=== PATIENT | female | born 1945 | race Caucasian/White ===

== ENCOUNTER 2019-09-26 18:01 | Emergency (ER) | payer OTHER ==
[~2019-09-26] VITALS: Ht 160 cm; Wt 59.0 kg
[2019-09-26] MEDS ORDERED: IV NORMAL SALINE 1000 ML BAG IV ONE (19:00)
--- NOTE | 2019-09-26 19:00 | NUR ---
Seen and examined by Dr Grant with new order. Report given to Ev TATE
[2019-09-26 19:35] LABS: BASOPHILS # (AUTO) 0.1 K/uL (0.0-8.0); BASOPHILS % (AUTO) 0.7 % (0.0-2.0); EOSINOPHILS # (AUTO) 0.2 K/uL (0.0-0.7); EOSINOPHILS % (AUTO) 2.9 % (0.0-7.0); HEMATOCRIT 41.7 % (31.2-41.9); LYMPHOCYTES # (AUTO) 1.4 K/uL (20.0-40.0); LYMPHOCYTES % (AUTO) 17.1 % (20.5-51.5); MEAN CORPUSCULAR HEMOGLOBIN 31.2 uug (24.7-32.8); MEAN CORPUSCULAR HGB CONC 34 g/dL (32.3-35.6); MONOCYTES # (AUTO) 0.4 K/uL (2.0-10.0); MONOCYTES % (AUTO) 4.8 % (0.0-11.0); NEUTROPHILS # (AUTO) 5.9 K/uL (1.8-8.9); NEUTROPHILS % (AUTO) 74.5 % (38.5-71.5); PLATELET COUNT (AUTO) 289 K/uL (179-408); RED BLOOD CELL COUNT(AUTO) 4.49 MIL/uL (3.63-4.92)
[2019-09-26 19:42] LABS: CREATININE 0.8 mg/dL (0.6-1.3); POTASSIUM 3.7 mmol/L (3.5-5.1)
[2019-09-26 19:48] LABS: BILIRUBIN,DIRECT 0.1 mg/dL (0.0-0.2); BILIRUBIN,TOTAL 0.4 mg/dL (0.2-1.0); TOTAL PROTEIN, SERUM 7.5 g/dL (6.4-8.2)
[2019-09-26 19:53] LABS: *BILIRUBIN,URIN NEGATIVE (NEGATIVE); *BLOOD, URINE 1+ (NEGATIVE); *CLARITY,URINE CLOUDY (CLEAR); *COLOR,URINE YELLOW (YELLOW); *KETONES,URINE NEGATIVE (NEGATIVE); *UROBILINOGEN,URINE 0.2 E.U./dl (NORMAL); LEUKOCYTE ESTERASE ,URINE 1+ (NEGATIVE); NITRITE, URINE NEGATIVE (NEGATIVE); PH,URINE 8.5 (5.0-8.0); UGLUCOSE NEGATIVE (NEGATIVE)
[2019-09-26 20:00] LABS: BACTERIA,URINE R /HPF (NONE SEEN); RBC,URINE 0-3 /HPF (0-3); WBC,URINE 0-3 /HPF (0-3)
[2019-09-26 20:01] LABS: SQUAMOUS EPITHELIAL CELL,UR FEW /HPF (NONE SEEN); URINE AMORPHOUS PHOSPHATES MANY /HPF
--- NOTE | 2019-09-26 20:21 | NUR ---
DR RENEE on phone with Isaac LEACH for pt.
--- NOTE | 2019-09-26 21:19 | NUR ---
Pt states she "does not want to go to [place]" for transfer. Pt signed AMA form. MD discussed risks and benefits. Patient verbalizes understanding of instructions. Patient discharged to home in stable conditon. Written and verbal after care instructions given. Taxi was called for pt transportation to home. Pt ambulated out of ER with steady gait. All belongings with pt.
[2019-09-26 21:26] VITALS: BP 145/63
== END 2019-09-26 21:27 | disposition home or self-care (01) ==
LOC: ER 18:01
DX: R55 Syncope and collapse (principal); F41.9 Anxiety disorder, unspecified
CPT/HCPCS: 36415; 70030-TC; 70450; 71045; 72125; 85025; 85730; 87086; 93005; A4663; J7030

== ENCOUNTER 2022-03-22 16:37 | Emergency (ER) | payer MEDICAID, MEDICARE, OTHER ==
[~2022-03-22] VITALS: Ht 157.5 cm; Wt 56.7 kg
[2022-03-22] MEDS ORDERED: ALBU8.5H8 INH (17:10)
[2022-03-22] MEDS ORDERED: DICLOFENAC SOD (17:10)
[2022-03-22] MEDS ORDERED: LEVO50TA8 PO (17:10)
[2022-03-22] MEDS ORDERED: NITR50CA PO (17:11)
[2022-03-22] MEDS ORDERED: OLANZAPINE 5 MG TABLET PO ONE ×2 (17:15→18:00)
[2022-03-22] MEDS ORDERED: IV NORMAL SALINE 1000 ML BAG IV ONE (17:15)
[2022-03-22] MEDS ORDERED: CEFTRIAXONE 1 G in IV DEXTROSE 5% 50 ML IV ONE (17:15)
[2022-03-22] MEDS ORDERED: CEFTRIAXONE /D5W 50ML IVPB **ER PYXIS IV ONE (17:22)
[2022-03-22] MEDS ORDERED: OLANZAPINE 5 MG TABLET ONE ×2 (17:23→18:01)
--- NOTE | 2022-03-22 17:30 | NUR ---
Patient per wheelchair, accompanied by daughter with complaints of abdominal pain 03/02 started yesterday. Denies nausea/vomiting, SOB, chest pain. Vitals stable.
--- NOTE | 2022-03-22 17:31 | NUR ---
MD at bedside, medical screening exam in progress.
[2022-03-22 17:50] LABS: MEAN CORPUSCULAR HEMOGLOBIN 32.4 uug (24.7-32.8); MEAN CORPUSCULAR VOLUME 93.6 fL (75.5-95.3); PLATELET COUNT (AUTO) 337 K/uL (179-408)
[2022-03-22 17:58] LABS: CREATININE 0.6 mg/dL (0.6-1.3); POTASSIUM 3.7 mmol/L (3.5-5.1)
[2022-03-22 17:59] LABS: *BILIRUBIN,URIN NEGATIVE (NEGATIVE); *BLOOD, URINE 2+ (NEGATIVE); *CLARITY,URINE CLEAR (CLEAR); *COLOR,URINE YELLOW (YELLOW); *KETONES,URINE NEGATIVE (NEGATIVE); *UROBILINOGEN,URINE 0.2 E.U./dl (NORMAL); LEUKOCYTE ESTERASE ,URINE NEGATIVE (NEGATIVE); NITRITE, URINE NEGATIVE (NEGATIVE); PH,URINE 6.5 (5.0-8.0); UGLUCOSE TRACE (NEGATIVE)
--- NOTE | 2022-03-22 17:59 | NUR ---
UA and covid specimen sent to lab.
--- NOTE | 2022-03-22 18:18 | NUR ---
Request 1:1 sitter per MD, notified ramp and cargo supervisor.
--- NOTE | 2022-03-22 18:35 | NUR ---
Patient refused to re insert IV, informed.
--- NOTE | 2022-03-22 18:35 | NUR ---
Patient is very anxious, tried to get out of bed and pulled out her IV line.
--- NOTE | 2022-03-22 18:36 | NUR ---
Maddison connell in [facility] - 03/22/22 at 1927 by LAYO Patient refused to re insert MD MILDRED informed.
--- NOTE | 2022-03-22 19:12 | NUR ---
call placed to [facility] informed them that the cat scan machine is down. They state they will have their doctor call to speak to the ER MD here.
--- NOTE | 2022-03-22 19:32 | NUR ---
order for 1:1 sitter notified head housekeeper, he informed me there is no staff and they will look for a sitter.
--- NOTE | 2022-03-22 20:08 | NUR ---
pt taken to cat scan.
[2022-03-22 20:09] LABS: BACTERIA,URINE NONE SEEN /HPF (NONE SEEN); SQUAMOUS EPITHELIAL CELL,UR FEW /HPF (NONE SEEN); WBC,URINE 0-3 /HPF (0-3)
--- NOTE | 2022-03-22 20:21 | NUR ---
Dr. Dawson called back from [facility] informed him the pt is in cat scan. states to call them back when we have cat scan results.
--- NOTE | 2022-03-22 20:23 | NUR ---
pt returned from cat scan.
--- NOTE | 2022-03-22 20:48 | NUR ---
pt ambulates to bathroom with minimal assist pt is steady on her feet. pt allowed me to put an iv to right wrist 20 g. pt states she will not touch the iv site.
--- NOTE | 2022-03-22 21:30 | NUR ---
cat scan of head resulted and troponin resulted, there were faxed to [facility] at [phone].
--- NOTE | 2022-03-22 22:01 | NUR ---
called [facility] regarding results of cat scan of the head and trop result. they state they are still working on placement.
--- NOTE | 2022-03-22 23:12 | NUR ---
pt removed iv that was placed to her right wrist.
--- NOTE | 2022-03-22 23:16 | NUR ---
sIaac Storm called and is speaking with Dr. Lam.
--- NOTE | 2022-03-22 23:31 | NUR ---
call to [facility] they state they are still locating a facility that it may be [facility] they will call us back.
--- NOTE | 2022-03-23 01:15 | NUR ---
spoke with [facility] they state pt is accepted to [facility] under the care of Dr. Nunez they are still pending a bed assignment and will call us back with number for report, bed and eta.
--- NOTE | 2022-03-23 01:43 | NUR ---
Received call back from [facility] with transfer information, patient going to [facility], Accepted by Dr. Bertrand uNnez, Room 4015B, number to report , BLS [facility] eta 0300.
--- NOTE | 2022-03-23 02:15 | NUR ---
report given to Yarely TATE pt to go to [facility] room 4015 B report was called to [phone]. [facility] eta to pick the pt up is at 0300.
--- NOTE | 2022-03-23 02:43 | NUR ---
[facility] has arrived. I placed a 20 g iv to right wrist and wrapped koband wrap around this iv site. I informed the ems that pt has previously removed the last two iv that were placed.
== END 2022-03-23 02:49 | disposition short-term general hospital (02) ==
LOC: ER 16:39
DX: R41.82 Altered mental status, unspecified (principal); Z20.822 Contact with and (suspected) exposure to COVID-19; E03.9 Hypothyroidism, unspecified; Z79.890 Hormone replacement therapy; Z87.440 Personal history of urinary (tract) infections; R94.31 Abnormal electrocardiogram [ECG] [EKG]
CPT/HCPCS: 36415; 70450; 71045; 80048; 81001; 83605; 84484; 85025; 87040 ×2; 87086; 87426; 93005; 96361; 96374; 99285; J0696; J7040; A4663